=== PATIENT | female | born 1995 | race Caucasian/White ===

== ENCOUNTER 2019-12-23 03:36 | Inpatient (IN) | payer OTHER ==
--- NOTE | 2019-12-23 06:25 | NUR ---
PHARMACY HAS BEEN NOTIFIED THAT THE LAST DOSE OF ANTIBIOTICS WERE GIVEN AT 0231.
--- NOTE | 2019-12-23 06:30 | NUR ---
GI CONSULT WAS NOTIFIED OF THE PATIENT BEING ON THE FLOOR AND SHE IS GOING TO COME AND SEE THE PATIENT FIRST BEFORE SHE ORDERS ANYTHING FOR HER.
[2019-12-23 07:04] VITALS: BP 91/43; PULSE 73; TEMP 98
[2019-12-23 07:09] LABS: BASO # 0.1 (0.0-0.2); BASO % 0.4 % (0.0-2.0); EOS # 0.1 (0.0-0.7); EOS % 0.4 % (0-4.0); GRAN # 11.3 (1.4-6.5); GRAN % 81.3 % (42.2-75.2); LYMPH # 1.5 (1.2-3.4); LYMPH % 10.9 % (20.0-51.0); MEAN CELL VOLUME 77 fl (80.0-100.0); MEAN CORPUSCULAR HGB CONC 32 g/dl (33.0-37.0); MONO # 0.9 (0.1-0.6); MONO % 6.6 % (1.7-9.3); PLATELET COUNT 212 K/mm3 (130-400); RED BLOOD COUNT 3.71 M/mm3 (4.10-5.30); REDCELL DISTRIBUTION WIDTH-CV 19.7 % (11.5-14.5)
[2019-12-23 07:10] LABS: HEMOGLOBIN 9.1 g/dl (12.5-16.0); MEAN CORPUSCULAR HEMOGLOBIN 25 pg (27.0-31.0)
[2019-12-23 07:11] LABS: HEMATOCRIT 28.7 % (37.0-47.0)
[2019-12-23 07:19] LABS: ALBUMIN 3.3 gm/dL (3.5-5.0); BILIRUBIN,TOTAL 0.6 mg/dL (0.0-1.0); CREATININE, serum 0.55 (0.52-1.25); POTASSIUM 3.6 mmol/L (3.4-5.0); TOTAL PROTEIN 6.6 gm/dL (6.4-8.2)
[2019-12-23 09:30] LABS: MUCOUS Present /lpf; PH 5 (5-8); URINE APPEARANCE Clear; URINE BACTERIA None Seen /hpf; URINE BILIRUBIN Negative (NEGATIVE); URINE BLOOD Negative (NEGATIVE); URINE COLOR Amber; URINE GLUCOSE Negative (NEGATIVE); URINE KETONE Trace (NEGATIVE); URINE LEUKOCYTE ESTERASE Trace (NEGATIVE); URINE NITRATE Negative (NEGATIVE); URINE PROTEIN(semi-quant) 1+ (NEGATIVE); URINE RBC 0-2 /hpf; URINE UROBILINOGEN Negative (NEGATIVE)
--- NOTE | 2019-12-23 09:31 | NUR ---
KEDAR met with the patient to discuss discharge plan. The patient lives in [place] with her , Ramon Catherine, and daughter. She states that her is deployed in [place] right now and that he does not have a phone. She states that she was able to find someone to babysit her daughter while she is here and that her father is coming up tomorrow morning. She reports independence with ADLs and does not have any DME. The patient receives primary care and her medications at [place]. She reports no difficulties obtaining her meds. The patient does not have advanced directives completed. The patient plans to return home upon discharge. She states that if she were to discharge today, she would need transport back to [place] to get her car. SW to continue to follow as needed.
[2019-12-23 11:57] VITALS: BP 98/54; PULSE 74; PULSE 76; TEMP 98.7
[2019-12-23 14:00] VITALS: BP 96/58; PULSE 75; TEMP 98.8
[2019-12-23 15:35] LABS: COLLECTION METHOD CLEAN CATCH
[2019-12-23 16:15] VITALS: BP 104/64; PULSE 78; TEMP 99
--- NOTE | 2019-12-23 18:00 | NUR ---
Patient has been doing well today. She had some mild discomfort with the clear liquids. She will be starting a bowel prep for her colonoscopy tomorrow morning. No other changes at this time. Call light within reach.
--- NOTE | 2019-12-23 19:10 | NUR ---
Received report from Mansi. Seen patient in bed, talking on the phone. She's on a bowel preparation already. With IV on left AC with NS at 75ml/hr. States discomfort on her abdomen because of the need to have a bowel movement. Instructed patient on NPO by midnight but she will have another bowel prep at 0400H.
[2019-12-23 20:28] VITALS: BP 99/61; PULSE 82; TEMP 98.6
[2019-12-24] VITALS: BP 106/60; PULSE 73; TEMP 98.5
[2019-12-24 03:56] VITALS: BP 100/51; PULSE 88; TEMP 98.5
--- NOTE | 2019-12-24 06:40 | NUR ---
Patient had an uneventful night. She was able to tolerate the bowel prep. Her stool is still semi liquid and dark. Denies any pain. Will endorse to day shift nurse.
[2019-12-24 07:06] VITALS: BP 93/53; PULSE 77; TEMP 98.3
[2019-12-24 07:07] LABS: BASO % 0.7 % (0.0-2.0); EOS # 0.2 (0.0-0.7); EOS % 2.8 % (0-4.0); GRAN # 3.9 (1.4-6.5); GRAN % 64.3 % (42.2-75.2); LYMPH # 1.6 (1.2-3.4); LYMPH % 25.7 % (20.0-51.0); MEAN CELL VOLUME 78 fl (80.0-100.0); MEAN CORPUSCULAR HGB CONC 31 g/dl (33.0-37.0); MEAN PLATELET VOLUME 11.8 fl (7.4-10.4); MONO # 0.4 (0.1-0.6); MONO % 6.3 % (1.7-9.3); PLATELET COUNT 204 K/mm3 (130-400); RED BLOOD COUNT 3.44 M/mm3 (4.10-5.30)
[2019-12-24 07:10] LABS: HEMATOCRIT 26.9 % (37.0-47.0); HEMOGLOBIN 8.3 g/dl (12.5-16.0); MEAN CORPUSCULAR HEMOGLOBIN 24 pg (27.0-31.0)
[2019-12-24 07:32] LABS: CALCIUM 8.3 mg/dL (8.4-10.2); CREATININE, serum 0.55 (0.52-1.25); POTASSIUM 3.4 mmol/L (3.4-5.0)
[2019-12-24 08:00] VITALS: BP 105/63; PULSE 75; TEMP 98.4
--- NOTE | 2019-12-24 08:48 | NUR ---
PATIENT IS ALERT AND ORIENTED. STOMACH PSAIN AT 4/10. PATIENT WAS TAKEN FOR COLONSCOPY THIS MORNING. HEART- NORMAL S1,S2 SOUND, BREATH SOUND IS CLEAR IN ALL FIELD. PATIENT REPORT CLEAR STOOL THIS MORNING BEFORE PROCEDURE. LAST SOLID FOOD 09/24 AT 12 NOON.
[2019-12-24 11:22] VITALS: BP 103/82; PULSE 71; TEMP 98.6
[2019-12-24] MEDS ORDERED: FLAGYL500 MG PO ×2 (11:46)
[2019-12-24] MEDS ORDERED: CIPRO 500MG TA500 MG PO ×2 (11:46)
--- NOTE | 2019-12-24 12:32 | NUR ---
First visit from the dishroom attendant. No needs right now.
--- NOTE | 2019-12-24 17:10 | NUR ---
Patient had an endoscopy today, it shows erythema per doctor note. Patient seem stable. decline diarrhea and nausea. Patient was discharged with Order for CIPRO, Metronidazole. discharge education was provided for the new medications and Colitis. Patient recieved information for next appointment with GI doctor and PCP at [facility]. IV discontinued. Patient discharged home.
[2019-12-25] MEDS ORDERED: FLAGYL500 MG PO (10:02)
[2019-12-25] MEDS ORDERED: CIPRO 500MG TA500 MG PO (10:02)
== END 2019-12-24 17:00 | disposition home or self-care (01) | DRG 392 ==
LOC: MEDICAL 03:36
PROVIDERS: Internal Medicine Gastroenterology; Nurse Practitioner Family; ADMIT Hospitalist
PROC: 0DJD8ZZ Inspection of Lower Intestinal Tract, Via Natural or Artificial Opening Endoscopic (ICD-10-PCS; principal; 2019-12-24 08:45)
DX: A09 Infectious gastroenteritis and colitis, unspecified (principal); D64.9 Anemia, unspecified; R82.81 Pyuria; Z90.89 Acquired absence of other organs
CPT/HCPCS: 99222-AI; 99239; J0744; J2704; J7030

== ENCOUNTER → 2020-03-24 | Outpatient (CLI) | payer OTHER ==
[~2020-03-24] MED LIST: CIPRO 500MG TA500 MG PO; FLAGYL500 MG PO
== END ==
LOC: COL.RAD
DX: R51 Headache (principal)